=== PATIENT | male | born 1975 | race Caucasian/White ===

== ENCOUNTER 2018-11-01 15:10 | Emergency (ER) | payer OTHER ==
[2018-11-01 15:33] VITALS: BMI 40.7
--- NOTE | 2018-11-01 16:08 | PDOC ---
History of Present Illness - General Chief Complaint: Pain, Acute Stated Complaint: KIDNEY STONES Time Seen by Provider: 11/01/18 16:04 History Source: Patient Past History - Past Medical History Allergies/Adverse Reactions: Allergies Allergy/AdvReac Type Severity Reaction Status Date / Time No Known Allergies Allergy Verified 11/01/18 15:33 Home Medications: Ambulatory Orders Tamsulosin HCl [Flomax] 0.4 mg PO DAILY #7 capsule 11/01/18 COPD: No Kidney Stones: Yes - Suicide/Smoking/Psychosocial Hx Smoking History: Current some day smoker Information on smoking cessation initiated: No Review of Systems - Review of Systems Constitutional: No: Chills, Fever ABD/GI: No: Nausea, Vomiting, Abdominal cramping : Yes: Dysuria, Flank Pain. No: Burning, Hematuria *Physical Exam - Vital Signs Last Vital Signs Temp Pulse Resp BP Pulse Ox 98.5 F 60 18 136/91 100 11/01/18 15:31 11/01/18 15:31 11/01/18 15:31 11/01/18 15:31 11/01/18 15:31 - Physical Exam General Appearance: No: Appropriately Dressed, Apparent Distress HEENT: positive: Normal Voice Neck: positive: Supple Respiratory/Chest: negative: Respiratory Distress Gastrointestinal/Abdominal: positive: Tender (minimal ttp to suprapubic diffusely, NT over mcburneys), Soft Musculoskeletal: negative: CVA Tenderness Integumentary: positive: Dry, Warm Neurologic: positive: Fully Oriented, Alert, Normal Mood/Affect ED Treatment Course - LABORATORY CBC & Chemistry Diagram: 11/01/18 17:35 11/01/18 17:35 Medical Decision Making - Medical Decision Making 11/01/18 16:06 43 yo M, renal stones remotely, with R flank pain and dysuria. Patient states several weeks ago he developed decreased urinary stream intermittently with associated pelvic pain radiating to his R flank. States symptoms improved at some point, but worsened yesterday. States he is able to urinate, but that very little comes out and sometimes comes out in droplets per patient. States symptoms very similar to prior renal stone. No surgeries. Denies any hematuria , nausea, vomiting, fever or chills. No known prostate issues See exam Renal colic causing R flank pain/retention vs ? prostate source, less likely infxn -roque for retention -pain control -IVF -labs/ua/std cxs -CT -dispo pending 11/01/18 19:00 Roque w/ >200cc of output. Labs wnl. UA w/ 3+ bld, no nit/LE. Pt reports feeling sig better w/ Ofirmiv and IVF. Pt signed out to SH[facility] Apple pending CT *DC/Admit/Observation/Transfer Diagnosis at time of Disposition: Kidney calculi - Discharge Dispostion Disposition: HOME Condition at time of disposition: Stable - Prescriptions Prescriptions: Tamsulosin HCl [Flomax] 0.4 mg PO DAILY #7 capsule - Referrals Referrals: Willie Santos MD [Staff Physician] - - Patient Instructions Additional Instructions: Take Flomax 0.4 mg every day until you are evaluated by urology. You've been given the phone number for urologist, Dr. Santos. Make an appointment for evaluation on Saturday. Drink plenty of fluids. Return to emergency department for pain the lower back, difficulty with urination, burning with urination fevers, chills or for any other concerns. Thank you very much for choosing us to provide your emergent health care needs. - Post Discharge Activity Forms/Work/School Notes: Back to Work
[2018-11-01 17:50] LABS: EOS % 0.4 % (0-4.5); HEMATOCRIT 43.6 % (35.4-49); HEMOGLOBIN 14.7 GM/dL (11.7-16.9); LYMPH % 18.2 % (8-40); MCH 28.5 pg (25.7-33.7); MCHC 33.8 g/dl (32.0-35.9); MEAN CELL VOLUME 84.4 fl (80-96); MEAN PLT VOLUME 8.1 fl (7.5-11.1); NEUT % 72.4 % (42.8-82.8); PLATELET COUNT 225 K/MM3 (134-434); RBC 5.16 M/mm3 (4.00-5.60); RDW 13.9 % (11.9-15.9); WHITE BLOOD COUNT 10.9 K/mm3 (4.0-10.0)
[2018-11-01 18:18] LABS: EPI CELLS 5.1 /HPF (0-5/HPF); URINE APPEARANCE CLOUDY; URINE BACTERIA 74.7 /hpf (NEGATIVE); URINE BILIRUBIN NEGATIVE (NEGATIVE); URINE CASTS 24 /lpf (0-8); URINE COLOR YELLOW; URINE GLUCOSE (UA) NEGATIVE (NEGATIVE); URINE KETONE NEGATIVE (NEGATIVE); URINE LEUK ESTERASE NEGATIVE (NEGATIVE); URINE NITRITE NEGATIVE (NEGATIVE); URINE PROTEIN TRACE (NEGATIVE); URINE RBC 27 /hpf (0-4); URINE UROBILINOGEN 0.2 mg/dL (0.2-1.0); URINE WBC 2 /hpf (0-5)
[2018-11-01] MEDS ORDERED: ACETAMINOPHEN 1000 MG/100 ML VIAL (NON FORMULARY) IVPB ONE (18:28)
[2018-11-01] MEDS ORDERED: SODIUM CHLORIDE 1,000 ML IV STA (18:28)
[2018-11-01] MEDS ORDERED: ACETAMINOPHEN INJECTION 100 ML IVPB ONE (18:33)
[2018-11-01 18:35] LABS: ALK PHOS 103 U/L (45-117); ANION GAP 7 MMOL/L (8-16); BILIRUBIN,TOTAL 0.4 mg/dL (0.2-1); BLOOD UREA NITROGEN 18 mg/dL (7-18); CALCIUM 9.1 mg/dL (8.5-10.1); CHLORIDE 108 mmol/L (98-107); CO2 25 mmol/L (21-32); CREATININE 0.9 mg/dL (0.55-1.3); GLUCOSE,RANDOM 98 mg/dL (74-106); POTASSIUM 4.5 mmol/L (3.5-5.1); SGOT/AST 26 U/L (15-37); SGPT/ALT 43 U/L (13-61); SODIUM 140 mmol/L (136-145); TOT PROT 7.4 g/dl (6.4-8.2)
--- NOTE | 2018-11-01 19:27 | PDOC ---
*Physical Exam - Vital Signs Last Vital Signs Temp Pulse Resp BP Pulse Ox 98.5 F 60 18 136/91 100 11/01/18 15:31 11/01/18 15:31 11/01/18 15:31 11/01/18 15:31 11/01/18 15:31 ED Treatment Course - LABORATORY CBC & Chemistry Diagram: 11/01/18 17:35 11/01/18 17:35 - ADDITIONAL ORDERS Additional order review: Laboratory Results 11/01/18 11/01/18 17:45 17:35 Sodium 140 Potassium 4.5 Chloride 108 H Carbon Dioxide 25 Anion Gap 7 L BUN 18 Creatinine 0.9 Creat Clearance w eGFR 92.54 Random Glucose 98 Calcium 9.1 Total Bilirubin 0.4 AST 26 ALT 43 Alkaline Phosphatase 103 Total Protein 7.4 Albumin 4.0 Urine Color Yellow Urine Appearance Cloudy Urine pH 5.0 Ur Specific [place] 1.017 Urine Protein Trace Urine Glucose (UA) Negative Urine Ketones Negative Urine Blood 3+ H Urine Nitrite Negative Urine Bilirubin Negative Urine Urobilinogen 0.2 Ur Leukocyte Esterase Negative Urine WBC (Auto) 2 Urine RBC (Auto) 27 Urine Casts (Auto) 24 U Epithel Cells (Auto) 5.1 Urine Bacteria (Auto) 74.7 11/01/18 17:35 RBC 5.16 MCV 84.4 MCHC 33.8 RDW 13.9 MPV 8.1 Neutrophils % 72.4 Lymphocytes % 18.2 Monocytes % 8.0 Eosinophils % 0.4 Basophils % 1.0 - Medications Given in the ED: ED Medications Discontinued Medications Generic Name Dose Route Start Last Admin Trade Name Freq PRN Reason Stop Dose Admin Acetaminophen 1,000 mg 11/01/18 18:28 11/01/18 18:41 Ofirmev Injection - IVPB 11/01/18 18:29 1,000 mg ONCE ONE Administration Progress Note - Progress Note Progress Note: Received signout from PATRICIA Boyer. Briefly this is a 43-year-old male with history of kidney stones presents emergency Department with urinary hesitancy and right-sided flank pain for the past 2 days. Patient states she had similar symptoms during his previous kidney stones. Urinalysis is remarkable for 3+ blood without evidence of infection. Laboratory testing is unremarkable. Pending CT scan at this time. Medical Decision Making - Medical Decision Making 11/01/18 20:22 CAT scan is read by imaging applications programmer: 1. 0.5 cm stone obstructing the distal right ureter. 2. 2 right-sided and 1 left-sided nonobstructive renal calculus. 3. Otherwise, unremarkable CT of the abdomen and pelvis, given limitations of nonenhanced CT. 11/01/18 20:34 Dr. Santos paged to discuss case. 11/01/18 21:02 Dr. Santos paged again. 11/01/18 21:16 Case is been discussed with Dr. Chrystal pyle. Recommendation to give patient prescription for Flomax and follow-up in his office on Saturday. This is been discussed with the patient was verbalized understanding of discharge instructions. Patient preferred pharmacy is closed at this time. I'll give the first dose of Flomax here and patient can grain picker his prescription for Flomax tomorrow. Patient is verbalized understanding of pain management and strict return precautions. *DC/Admit/Observation/Transfer Diagnosis at time of Disposition: Kidney calculi - Discharge Dispostion Disposition: HOME Condition at time of disposition: Stable Decision to Admit order: No - Prescriptions Prescriptions: Tamsulosin HCl [Flomax] 0.4 mg PO DAILY #7 capsule - Referrals Referrals: Willie Santos MD [Staff Physician] - - Patient Instructions Additional Instructions: Take Flomax 0.4 mg every day until you are evaluated by urology. You've been given the phone number for urologist, Dr. Santos. Make an appointment for evaluation on Saturday. Drink plenty of fluids. Return to emergency department for pain the lower back, difficulty with urination, burning with urination fevers, chills or for any other concerns. Thank you very much for choosing us to provide your emergent health care needs. - Post Discharge Activity Forms/Work/School Notes: Back to Work
[2018-11-01] MEDS ORDERED: TAMSULOSIN HCL 0.4 MG CAP PO ONE (21:16)
[2018-11-01] MEDS ORDERED: TAMSULOSIN HCL 0.4 MG CAP ONE (21:22)
[2018-11-01 21:36] VITALS: BP 130/77; PULSE 82; TEMP 98.3
== END 2018-11-01 21:36 | disposition home or self-care (01) ==
LOC: JER 15:10
PROC: 3E033NZ Introduction of Analgesics, Hypnotics, Sedatives into Peripheral Vein, Percutaneous Approach (ICD-10-PCS; principal; 2018-11-01)
PROC: 0T9B70Z Drainage of Bladder with Drainage Device, Via Natural or Artificial Opening (ICD-10-PCS; 2018-11-01)
DX: N20.0 Calculus of kidney (principal); Z87.442 Personal history of urinary calculi
CPT/HCPCS: 36415; 74176-TC; 80053; 81003; 85025; 87086; 87491; 87591; 99284-25; J0131; J7030